=== PATIENT | female | born 1995 | race Caucasian/White ===

== ENCOUNTER 2016-09-04 22:11 | Outpatient (CLI) | payer OTHER ==
[2016-09-04] MEDS ORDERED: PRENTAB9 PO (22:19)
[2016-09-04 23:06] LABS: MEAN CORPUSCULAR HEMOGLOBIN 29.2 pg (27.0-33.0); MEAN CORPUSCULAR HGB CONC 33.6 g/dl (32.0-36.5); MEAN CORPUSCULAR VOLUME 86.7 fl (80.0-96.0); RED CELL DISTRIBUTION WIDTH 14.8 % (11.5-14.5); WHITE BLOOD COUNT 8.4 K/mm3 (4.0-10.0)
[2016-09-04 23:30] LABS: ALBUMIN/GLOBULIN RATIO 0.91 (1.00-1.93); ALKALINE PHOSPHATASE 47 U/L (45-117); ALT/SGPT 13 U/L (12-78); ANION GAP 7 MEQ/L (8-16); AST/SGOT 10 U/L (15-37); BILIRUBIN,TOTAL 0.2 MG/DL (0.2-1.0); BLOOD UREA NITROGEN 4 MG/DL (7-18); CARBON DIOXIDE LEVEL 25 MEQ/L (21-32); CHLORIDE LEVEL 110 MEQ/L (98-107); CREATININE FOR GFR 0.56 MG/DL (0.55-1.02); GLOMERULAR FILTRATION RATE > 60.0 (>60); GLUCOSE, FASTING 87 MG/DL (70-105); POTASSIUM SERUM 4.2 MEQ/L (3.5-5.1); SODIUM LEVEL 142 MEQ/L (136-145); TOTAL PROTEIN 6.3 GM/DL (6.4-8.2)
[2016-09-05] MEDS ORDERED: CALCIUM CARBONATE 500 MG CHEW U/D PO PRN (00:45)
[2016-09-05 01:11] LABS: AMPHETAMINES URINE REFLEX NEGATIVE (NEGATIVE); BARBITURATES URINE REFLEX NEGATIVE (NEGATIVE); BENZODIAZEPINES URINE REFLEX NEGATIVE (NEGATIVE); COCAINE METABOLITE URINE REFLE NEGATIVE (NEGATIVE); CONTROL LINE INT CTR LINE PRESENT; METHADONE URINE REFLEX NEGATIVE (NEGATIVE); OPIATES URINE REFLEX NEGATIVE (NEGATIVE); TRICYCLIC ANTIDEPRESS UR REFL NEGATIVE (NEGATIVE)
== END 2016-09-05 01:00 | disposition home or self-care (01) ==
LOC: M LDO 22:11
PROVIDERS: ATTEND Advanced Practice Midwife
DX: O26.892 Other specified pregnancy related conditions, second trimester (principal); R10.2 Pelvic and perineal pain; Z3A.25 25 weeks gestation of pregnancy

== ENCOUNTER → 2016-09-13 | Outpatient (CLI) | payer OTHER ==
[~2016-09-13] MED LIST: PRENTAB9 PO
[2016-09-14 13:57] LABS: CONTROL LINE INT CTR LINE PRESENT; HIV SCRN NEGATIVE (NEGATIVE); HIV SCRN1 NEGATIVE (NEGATIVE)
== END ==
LOC: M SMT 14:22
PROVIDERS: ATTEND Advanced Practice Midwife
DX: Z34.83 Encounter for supervision of other normal pregnancy, third trimester (principal)

== ENCOUNTER → 2016-09-20 | Outpatient (CLI) | payer OTHER ==
--- NOTE | 2016-09-21 03:12 | REP ---
Clinical: Anatomical evaluation. Comparison: None . Findings: Examination demonstrates a single live intrauterine in cephalic presentation. motion is identified by technologist. Placenta is noted anteriorly and grade one without evidence for placenta previa or abruption. Amniotic fluid volume is normal. Cervix measures 5.9 cm in length and appears closed. No evidence for nuchal cord. Gestational age by LMP 29 weeks 2 days with RUTH 12/04/2016 . Gestational age by current measurements 28 weeks 1 day with RUTH 12/12/2016 . FHR equals 160 beats per minute. BPD 6.9 cm 27-week 6 days HC 26.0 cm 28 weeks 2 days AC 24.9 cm 29 weeks 1 day FL 5.4 cm 28 weeks 5 days HL 5.0 cm 29 weeks 1 day HC/AC ratio 1.04 Estimated weight 1288 grams ( 58th percentile). Amniotic fluid index equals 14.3 cm. Anatomical assessment demonstrates normal structures including cranium, choroid plexus, cavum, cerebellum/posterior fossa, facial features, lungs, four-chamber heart/ventricular outflow tracts, diaphragm, stomach, cord insertion/, bladder, spine, and extremities. Impression: Single live intrauterine in cephalic presentation. Single umbilical artery (two-vessel cord) noted. Mild renal pelviectasis (left greater than right). Signed by Cameron Abbott MD 09/21/2016 03:03 A
== END ==
LOC: M SMT 13:46
PROVIDERS: ATTEND Advanced Practice Midwife
DX: Z34.83 Encounter for supervision of other normal pregnancy, third trimester (principal)

== ENCOUNTER → 2016-10-26 | Outpatient (CLI) | payer OTHER ==
--- NOTE | 2016-10-27 04:27 | REP ---
Clinical: followup renal pelviectasis Comparison: 09/20/2016 . Findings: Examination demonstrates a single live intrauterine in cephalic presentation. motion is identified by technologist. Placenta is noted anteriorly and grade II without evidence for placenta previa or abruption. Amniotic fluid volume is normal. Cervix measures 3.2 cm in length and appears closed. Nuchal cord cannot be excluded. Gestational age by LMP 34 weeks 4 days with RUTH 12/03/2016 . Gestational age by current measurements 33 weeks 3 days with RUTH 12/11/2016 . FHR equals 144 beats per minute. BPD 8.3 cm 33 weeks 4 days HC 30.7 cm 34 weeks 1 day AC 29.0 cm 33 weeks 0 days FL 6.6 cm 33 weeks 5 days HL 5.7 cm 32 weeks 6 days HC/AC ratio 1.06 Amniotic fluid index equals 12.7 cm. Umbilical cord SD ratio equals 2.26. Estimated weight 2187 grams ( 47th percentile based on current measurements and first ultrasound ). A two-vessel cord (single umbilical artery) is again noted along with mild bilateral renal pelviectasis which is within normal range for age. Impression: Cephalic presentation demonstrating appropriate interval growth. Signed by Cameron Abbott MD 10/27/2016 04:18 A
== END ==
LOC: M RAD 11:32
PROVIDERS: ATTEND Advanced Practice Midwife
DX: Z34.83 Encounter for supervision of other normal pregnancy, third trimester (principal)

== ENCOUNTER → 2016-11-16 | Outpatient (REF) | payer OTHER ==
[~2016-11-16] MED LIST changes: +PREV15CA11 PO; +PROT20TA11 PO
== END ==
LOC: M LAB REF 16:47
PROVIDERS: ATTEND Advanced Practice Midwife
DX: Z34.83 Encounter for supervision of other normal pregnancy, third trimester (principal)

== ENCOUNTER 2016-11-20 22:26 | Outpatient (CLI) | payer OTHER ==
[~2016-11-20] VITALS: Ht 172.7 cm; Wt 75.0 kg
[~2016-11-20 22:26] MED LIST changes: -PREV15CA11 PO; -PROT20TA11 PO
[2016-11-20 22:40] VITALS: BP 123/82
[2016-11-20] MEDS ORDERED: PREV15CA11 PO (22:47)
[2016-11-20] MEDS ORDERED: PROT20TA11 PO (23:50)
== END 2016-11-20 23:40 | disposition home or self-care (01) ==
LOC: M LDO 22:26
PROVIDERS: ATTEND Advanced Practice Midwife
DX: O47.03 False labor before 37 completed weeks of gestation, third trimester (principal); Z3A.36 36 weeks gestation of pregnancy

== ENCOUNTER → 2016-11-29 | Outpatient (CLI) | payer OTHER ==
[~2016-11-29] MED LIST changes: +PREV15CA11 PO; +PROT20TA11 PO
--- NOTE | 2016-11-29 11:15 | REP ---
Obstetric sonography: History: Supervision of . growth study at 36 weeks. Previously documented single umbilical artery cord. Findings: Scanning through the gravid uterus demonstrates a viable single intrauterine gestation in a cephalic lie. motion is observed and heart rate is recorded at 143 beats per minute. An anterior grade 3 placenta is seen without evidence of previa or abruption. Amniotic fluid is subjectively normal. Closed cervical length is 3.3 cm. No extrauterine abnormality is observed. There has been appropriate interval growth. Umbilical cord is seen draping across the shoulders. Two vessel umbilical cord is again seen. The following anatomic structures are again identified and felt to be sonographically unremarkable: cranium, cavum, face and profile, lungs, four-chamber heart, diaphragm, left-sided stomach, kidneys and bladder, spine. Biometry chart: BPD 9.1 cm 36-week 6 days Head circumference 33.4 cm 38 weeks 1 day Abdominal 34.0 cm 37-week 6 days Femur length 7.2 cm 37 weeks 0 days Humeral length 6.4 cm 37 weeks 2 days HC/AC ratio normal 1.0. Cephalic index normal 0.76. Estimated weight 3256 grams, 7 pounds 2 ounces, 49th percentile for 38 weeks 1 day. Impression: Viable single intrauterine gestation at 37 weeks 3 days by today's composite sonographic criteria. Expected gestational age estimate based on prior sonography is 38 weeks 1 day. There is appropriate interval growth. RUTH by prior sonography December 12, 2016. Single umbilical artery cord again noted. Signed by Pablo Bright MD 11/29/2016 01:40 P
== END ==
LOC: M RAD 08:54
PROVIDERS: ATTEND Advanced Practice Midwife
DX: Z36 Encounter for antenatal screening of mother (principal)

== ENCOUNTER 2016-12-03 11:48 | Inpatient (IN) | payer OTHER ==
[~2016-12-03] VITALS: Ht 180.3 cm; Wt 78.0 kg
[2016-12-03] VITALS (22 sets, daily range): BP systolic 121–140; BP diastolic 63–95
[2016-12-03] MEDS ORDERED: PENICILLIN G POTASSIUM IV 5 MU in D5W MINI-BAG PLUS 100 ML IV STA (13:11)
[2016-12-03] MEDS ORDERED: LACTATED RINGER'S 1000 ML IV STA (13:11)
[2016-12-03] MEDS ORDERED: LR 1,000 ML IV SCH (13:11)
[2016-12-03] MEDS ORDERED: PENICILLIN G POTASSIUM 5 MU VIAL As Ordered ONE (13:13)
[2016-12-03 13:33] LABS: MEAN CORPUSCULAR HEMOGLOBIN 28.4 pg (27.0-33.0); MEAN CORPUSCULAR HGB CONC 34.6 g/dl (32.0-36.5); MEAN CORPUSCULAR VOLUME 82.1 fl (80.0-96.0); RED CELL DISTRIBUTION WIDTH 14.9 % (11.5-14.5)
[2016-12-03] MEDS ORDERED: FENTANYL 2MCG/ML ROPIVACAINE 0.2% IN 0.9% NACL 200ML IVBAG As Ordered ONE (14:04)
[2016-12-03] MEDS ORDERED: FENTANYL/ROPIVACAINE/NACL BAG 200 ML EPIDURAL SCH (14:50)
[2016-12-03] MEDS ORDERED: EPIDURAL/PCA KEYS XX PRN (14:50)
[2016-12-03] MEDS ORDERED: NALOXONE INJ 0.4 MG/1 ML VIAL (J2310) IV PRN (14:50)
[2016-12-03] MEDS ORDERED: diphenhydrAMINE INJ 50MG/ML VIAL (J1200) IV PRN (14:50)
[2016-12-03] MEDS ORDERED: ePHEDrine SULFATE 25 MG/5 ML(5MG/ML) SYRINGE IV PRN (14:50)
[2016-12-03] MEDS ORDERED: REFRIGERATOR IV KEYS XX PRN (14:50)
[2016-12-03] MEDS ORDERED: EPIDURAL COMMENT XX SCH (14:50)
[2016-12-03] MEDS ORDERED: ONDANSETRON 4MG/2ML VIAL (J2405) IV PRN ×2 (14:50→16:15)
[2016-12-03] MEDS ORDERED: OXYTOCIN 30 UNITS IN 0.9% NaCl 500ML IV BAG (J2590) As Ordered ONE (15:08)
[2016-12-03] MEDS ORDERED: RHOGAM 300 MCG (1500 IU) INJ (J2790) IM SCH (16:15)
[2016-12-03] MEDS ORDERED: DIBUCAINE 1% OINTMENT 30GM TOP PRN (16:15)
[2016-12-03] MEDS ORDERED: ACETAMINOPHEN 500 MG TAB PO PRN (16:15)
[2016-12-03] MEDS ORDERED: OXYTOCIN DRIP 30 UNITS in APPROPRIATE DILUENT 1 EA IV ONE (16:15)
[2016-12-03] MEDS ORDERED: METHYLERGONOVINE MALEATE 0.2 MG TAB PO PRN (16:15)
[2016-12-03] MEDS ORDERED: MEASLES,MUMPS,RUBELLA VACCINE INJ (MMR-II) (90707) SC SCH (16:15)
[2016-12-03] MEDS ORDERED: DOCUSATE SODIUM 100 MG CAP PO PRN (16:15)
--- NOTE | 2016-12-03 16:34 | DN ---
DATE: 12/03/2016 PREDELIVERY DIAGNOSIS: Term in labor. POST DELIVERY DIAGNOSIS: Delivery. PROCEDURE: Spontaneous vaginal delivery. COMPTOMETER OPERATOR: Dr. Bc Khan ANESTHESIA: Epidural. ESTIMATED BLOOD LOSS: 300 mL. FINDINGS: 8 pound, 1 ounce male infant, scores 8 and 8. DELIVERY SUMMARY: After a short second stage, the patient had spontaneous delivery of an 8 pound, 1 ounce male , scores 8 and 8 under epidural anesthesia. There was no nuchal cord. The shoulders delivered spontaneously with ease. The cried spontaneously and was handed to the mother. The cord was doubly clamped and cut. The placenta delivered spontaneously and appeared to be intact. The patient received IV pitocin immediately after delivery of the placenta. There were no vaginal lacerations precent. There were no sponges to count.
[2016-12-03] MEDS ORDERED: PENICILLIN G POTASSIUM IV 2.5 MU in D5W 100 ML IV SCH (17:00)
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
[2016-12-03] MEDS: IBUPROFEN 800 MG TAB PO PRN (22:50)
[2016-12-04 06:02] VITALS: BP 124/69
[2016-12-04] MEDS: PRENATAL VITAMIN TAB PO SCH (08:16)
[2016-12-04] MEDS: IBUPROFEN 800 MG TAB PO PRN (08:16)
[2016-12-04 18:00] VITALS: BP 117/66
[2016-12-05 06:33] VITALS: BP 114/68
[2016-12-05] MEDS ORDERED: ACET50TA PO (07:33)
[2016-12-05] MEDS ORDERED: IBUP-1114 PO (07:33)
[2016-12-05] MEDS: PRENATAL VITAMIN TAB PO SCH (08:02)
== END 2016-12-05 13:20 | disposition home or self-care (01) | DRG 775 ==
LOC: M LDO 11:48 → M LDI 13:08 → M OBS 17:30
PROVIDERS: ADMIT Specialist; ATTEND Specialist
PROC: 10E0XZZ Delivery of Products of Conception, External Approach (ICD-10-PCS; principal; 2016-12-03)
DX: O99.334 Smoking (tobacco) complicating childbirth (principal); Z37.0 Single live birth; Z3A.38 38 weeks gestation of pregnancy; O99.820 Streptococcus B carrier state complicating pregnancy; F17.200 Nicotine dependence, unspecified, uncomplicated

== ENCOUNTER → 2017-08-21 | Outpatient (REF) | payer OTHER ==
[2017-08-22 01:53] LABS: CHLAMYDIA DNA AMPLIFICATION NEGATIVE (NEGATIVE); GC DNA AMPLIFICATION NEGATIVE (NEGATIVE)
== END ==
LOC: M LAB REF 18:44
DX: Z11.3 Encounter for screening for infections with a predominantly sexual mode of transmission (principal)